=== PATIENT | female | born 1995 | race Caucasian/White ===

== ENCOUNTER 2019-12-17 14:30 | Emergency (ER) | payer OTHER ==
[~2019-12-17] VITALS: Ht 165.1 cm; Wt 77.1 kg
[2019-12-17 14:59] LABS: URINE BILIRUBIN NEGATIVE (Negative); URINE BLOOD TRACE (Negative); URINE CLARITY CLEAR; URINE COLOR YELLOW; URINE GLUCOSE-RANDOM* NEGATIVE (Negative); URINE KETONES NEGATIVE (Negative); URINE LEUKOCYTES-REFLEX NEGATIVE (Negative); URINE NITRITE-REFLEX NEGATIVE (Negative); URINE PROTEIN (DIPSTICK) NEGATIVE (Negative); URINE SPECIFIC GRAVITY >= 1.030 (1.005-1.035); URINE UROBILINOGEN 0.2 E.U./dl (0.2-1.0)
[2019-12-17 15:27] LABS: BASOPHILS 0.5 % (0.0-2.0); EOSINOPHILS 1.6 % (0.0-3.0); HEMATOCRIT 36.1 % (37.0-47.0); HEMOGLOBIN 12.4 gm/dL (12.0-15.0); LYMPHOCYTES 30.2 % (24.0-44.0); MCH 28.6 pg (26.0-34.0); MCHC 34.3 g/dL (28.0-37.0); MCV 83.4 fL (80.0-100.0); MONOCYTES 12.3 % (1.0-8.0); PLATELET COUNT 309 thou/uL (150-400); POLYS 55.4 % (36.0-66.0); RBC 4.33 mil/uL (4.20-5.00); RDW 14.3 % (10.5-14.5)
[2019-12-17 15:31] LABS: ANION GAP 6 mmol/L (7-16); BUN 14 mg/dL (7-18); CALCIUM 8.6 mg/dL (8.5-10.1); CHLORIDE 100 mmol/L (98-107); CO2 25 mmol/L (21-32); CREATININE 0.6 mg/dL (0.6-1.0); GLUCOSE 85 mg/dL (74-106); POTASSIUM 3.4 mmol/L (3.5-5.1); SODIUM 131 mmol/L (136-145)
[2019-12-17 15:41] LABS: SGOT 21 U/L (15-37); SGPT 57 U/L (30-65); TOTAL BILIRUBIN 0.3 mg/dL (0.2-1.0); TROPONIN-I <0.06 ng/mL (<0.06)
--- NOTE | 2019-12-17 16:05 | EKG ---
[facility] [place] [address] ELECTROCARDIOGRAM REPORT Name: AVITIABRANDY Room #: REG [facility]#: [id number] Admission: 12/17/19 Attend Phys: Discharge: Date of : 89 Report #: [id number] THIS REPORT FOR: cc: LOTUS - Veronica family physician/PCP LOTUS - Veronica family physician/PCP Humberto Roman MD ~ THIS REPORT FOR: //name// [facility] ED Test Date: 2019-12-17 Test Time: 15:04:21 Pat Name: BRANDY AVITIA Department: Room: Gender: Manager Cleaning: [facility] : 1995 Requested By: Grace Meng Order Number: [id number] MD: Humberto Roman Measurements Intervals [place] Rate: 80 P: 23 VT: 143 QRS: 51 QRSD: 89 T: 35 QT: 385 QTc: 445 Interpretive Statements Sinus rhythm No previous ECG available for comparison Electronically Signed On 12-17-2019 16:04:08 CDT by Humberto Roman [email or web address] <ELECTRONICALLY SIGNED> By: Humberto Roman MD 12/17/19 1604 1504 150 MD NEDA Cheng
[2019-12-17] MEDS ORDERED: VITAFOL-OB+DHA1 EACH PO (17:25)
[2019-12-17 17:47] VITALS: BP 99/51
== END 2019-12-17 17:48 | disposition home or self-care (01) ==
LOC: ER 14:30
PROVIDERS: Physician Assistant
DX: O26.891 Other specified pregnancy related conditions, first trimester (principal); R10.2 Pelvic and perineal pain; R10.31 Right lower quadrant pain; N89.8 Other specified noninflammatory disorders of vagina; Z3A.01 Less than 8 weeks gestation of pregnancy; Z98.890 Other specified postprocedural states